=== PATIENT | male | born 1980 | race African-American/Black ===

== ENCOUNTER 2016-12-20 00:49 | Emergency (ER) | payer MEDICAID, OTHER ==
[~2016-12-20] VITALS: Ht 175.3 cm; Wt 118.0 kg
[~2016-12-20 00:49] MED LIST: HCTZ; LISINOPRIL
[2016-12-20] MEDS ORDERED: TETANUS, DIPHTHERIA, PERTUSSIS VAC/PF 0.5ML (>7YR OLD) IM ONE (03:30)
[2016-12-20 04:29] VITALS: BP 147/99
== END 2016-12-20 04:34 | disposition home or self-care (01) ==
LOC: ER 01:45
DX: S61.215A Laceration without foreign body of left ring finger without damage to nail, initial encounter (principal); I10 Essential (primary) hypertension; W26.0XXA Contact with knife, initial encounter; Y93.89 Activity, other specified; Y92.010 Kitchen of single-family (private) house as the place of occurrence of the external cause
CPT/HCPCS: 90471; 90715; 99283; Z7610